=== PATIENT | male | born 1975 | race Caucasian/White ===

== ENCOUNTER 2017-09-14 20:06 | Emergency (ER) | payer BC ==
--- NOTE | 2017-09-14 20:28 | EDM.PDOC ---
ED HPI GENERAL MEDICAL PROBLEM - General Chief Complaint: Lower Extremity Injury/Pain Stated Complaint: LT FOOT Time Seen by Provider: 09/14/17 20:24 Source of Information: Reports: Patient History Limitations: Reports: No Limitations - History of Present Illness INITIAL COMMENTS - FREE TEXT/NARRATIVE: HISTORY AND PHYSICAL: [] 42-year-old male presents with left leg swelling /foot swelling History of Present Illness: []Gentleman who underwent surgery with back fusion L4-5 3 days ago Previous to surgery patient had been on several total for atrial fibrillation he cannot restart this medication for another 24 hours Patient states that the foot swelling has improved after he has his foot elevated but by 5:00 in the evening the edema returns. he has burning sensation. Review of Systems: As per history of present illness and below otherwise all systems reviewed and negative. Past medical history: As per history of present illness and as reviewed below otherwise noncontributory. Surgical history: As per history of present illness and as reviewed below otherwise noncontributory. Social history: No reported history of drug or alcohol abuse. Family history: As per history of present illness and as reviewed below otherwise noncontributory. Physical exam: Alert and oriented answer questions appropriately speaking in full sentences without any shortness of breath HEENT: Atraumatic, normocehpalic, pupils reactive, negative for conjunctival pallor or scleral icterus, mucous membranes moist, throat clear, neck supple, nontender, trachea midline. Lungs: Clear to auscultation, breath sounds equal bilaterally, chest non tender. Good inspiratory expiratory effort appreciated Heart: S1S2, regular, negative for clicks, rubs, or JVD. Abdomen: Soft, nondistended, nontender. Negative for masses or hepatossplenmegaly. Negative for costovertebral tenderness. Pelvis: Stable nontender. Genitourinary: Deferred. Rectal: Deferred Extremities: Atraumatic, negative for cords or calf pain. Faint pulses palpable on the anterior dorsum of his left foot. Mild edema. InCreased pain with palpation. Range of motion is present. Neurovascular unremarkable. Neuro: Awake, alert, oriented. Cranial nerves II through XII unremarkable. Cerebellum unremarkable. Motor and sensory unremarkable throughout. Exam nonfocal. Discussed the negative results with the patient and answered all questions to his satisfaction Diagnostics: []Venous Doppler Therapeutics: [] Impression: [Left pedal edema] Plan: []Return home Keep appointment as previously scheduled with your surgeon Follow up in emergency room as discussed and recommended Definitive disposition and diagnosis as appropriate pending reevaluation and review of above. Onset: Gradual Duration: Day(s): (3) Location: Reports: Lower Extremity, Left Quality: Reports: Burning, Stabbing Severity: Moderate Improves with: Reports: Other (Rest and elevation) Worsens with: Reports: None left foot Pain Score (Numeric/FACES): 5 - Related Data Allergies Allergy/AdvReac Type Severity Reaction Status Date / Time No Known Allergies Allergy Verified 09/14/17 20:19 Home Meds: Home Meds Cephalexin [Keflex] 500 mg PO BID 09/14/17 [History] Gabapentin [Neurontin] 300 mg PO BID 09/14/17 [History] Metoprolol Succinate [Toprol XL] 25 mg PO BID 09/14/17 [History] oxyCODONE HCl/Acetaminophen [oxyCODONE-Acetaminophen 5-325] 1 tab PO Q4H PRN [History] Past Medical History HEENT History: Reports: None Cardiovascular History: Reports: Afib, High Cholesterol, Hypertension Respiratory History: Reports: None Gastrointestinal History: Reports: None Genitourinary History: Reports: None Musculoskeletal History: Reports: None Neurological History: Reports: None Psychiatric History: Reports: None Endocrine/Metabolic History: Reports: None Hematologic History: Reports: None Immunologic History: Reports: None Oncologic (Cancer) History: Reports: None Dermatologic History: Reports: None - Infectious Disease History Infectious Disease History: Reports: None - Past Surgical History Musculoskeletal Surgical History: Reports: Other (See Below) Other Musculoskeletal Surgeries/Procedures:: back surgery Social & Family History - Family History Family Medical History: Noncontributory - Tobacco Use Smoking Status *Q: Never Smoker - Caffeine Use Caffeine Use: Reports: Coffee - Recreational Drug Use Recreational Drug Use: No Review of Systems - Review of Systems Review Of Systems: ROS reveals no pertinent complaints other than HPI. ED EXAM, GENERAL - Physical Exam Exam: See Below (see dictation) Course - Vital Signs Last Recorded V/S: Last Vital Signs Temp 36.8 C 09/14/17 20:16 Pulse 64 09/14/17 20:16 Resp 18 09/14/17 20:16 BP 114/91 H 09/14/17 20:16 Pulse Ox 98 09/14/17 20:16 - Orders/Labs/Meds Orders: Active Orders 24 hr Category Date Time Status Venous Doppler Lwr Ext Lt [US] Stat Exams 09/14/17 20:24 Taken Departure - Departure Time of Disposition: 21:25 Disposition: Home, Self-Care 01 Condition: Good Clinical Impression: Pedal edema - Discharge Information Instructions: Pain Medicine Instructions, [id number] Referrals: PCP,None [Primary Care Provider] - Forms: ED Department Discharge Additional Instructions: The following information is given to patients seen in the emergency department who are being discharged to home. This information is to outline your options for follow-up care. We provide all patients seen in our emergency department with a follow-up referral. The need for follow-up, as well as the timing and circumstances, are variable depending upon the specifics of your emergency department visit. If you don't have a primary care physician on staff, we will provide you with a referral. We always advise you to contact your personal physician following an emergency department visit to inform them of the circumstance of the visit and for follow-up with them and/or the need for any referrals to a consulting specialist. The emergency department will also refer you to a specialist when appropriate. This referral assures that you have the opportunity for followup care with a specialist. All of these measure are taken in an effort to provide you with optimal care, which includes your followup. Under all circumstances we always encourage you to contact your private physician who remains a resource for coordinating your care. When calling for followup care, please make the office aware that this follow-up is from your recent emergency room visit. If for any reason you are refused follow-up, please contact the [facility] emergency department at and asked to speak to the emergency department charge nurse. No DVT was found on your examination today Use the compression stockings that you received during surgery on in the daytime off at night Follow-up with your surgeon as scheduled Return to the emergency room as discussed and directed - My Orders Last 24 Hours: My Active Orders 09/14/17 20:24 Venous Doppler Lwr Ext Lt [US] Stat - Assessment/Plan Last 24 Hours: My Active Orders 09/14/17 20:24 Venous Doppler Lwr Ext Lt [US] Stat
--- NOTE | 2017-09-16 13:23 | US ---
EXAM DATE: 09/14/17 PATIENT'S AGE: 42 Patient: KIA JUNE Facility: [place], [place] Site . Site : [id number] Study: US Extremity Left [id number]/21/2018 9:01:46 PM Ordering Physician: Doctor Stephen Final Report: INDICATION: Pain left leg. Back surgery 09/09/2017. FINDINGS: Left lower extremity venous ultrasound was performed using grayscale imaging with color Doppler and spectral analysis. The left common femoral vein, superficial femoral vein and popliteal vein are all fully compressible with spontaneous flow and augmentation. The posterior tibial vein is also patent. IMPRESSION: No evidence of a deep venous thrombosis in the left lower extremity veins. Dictated by Ganga Felix MD @ 09/14/2017 9:15:35 PM Dictated by: Ganga Felix MD @ 09/14/2017 21:15:40 (Electronic Signature) Report Signed by Proxy. ALEX
== END 2017-09-14 21:50 | disposition home or self-care (01) ==
LOC: MW.ED 20:06
DX: R60.0 Localized edema (principal); I10 Essential (primary) hypertension
CPT/HCPCS: 93971-26-LT; 93971-LT; 99283-25